=== PATIENT | male | born 1940 | race Caucasian/White ===

== ENCOUNTER 2017-06-08 14:23 | Inpatient (IN) | payer MEDICARE, MEDICAID ==
[~2017-06-08] VITALS: Ht 167.6 cm; Wt 72.9 kg
[2017-06-08 14:40] LABS: BASOPHILS % 0.6 % (0.0-2.0); EOSINOPHILS # 0.1 10^3/ul (0.0-0.5); EOSINOPHILS % 1.1 % (0.0-7.0); HEMOGLOBIN 11.9 g/dl (14.0-18.0); LYMPHOCYTES # 1.6 10^3/ul (0.8-2.9); LYMPHOCYTES % 25.7 % (15.0-51.0); MEAN CORPUSCULAR HEMOGLOBIN 31.4 pg (29.0-33.0); MEAN CORPUSCULAR HGB CONC 33.1 g/dl (32.0-37.0); MEAN PLATELET VOLUME 9.6 fl (7.4-10.4); MONOCYTE # 0.7 10^3/ul (0.3-0.9); MONOCYTES % 10.7 % (0.0-11.0); NEUTROPHIL # 3.8 10^3/ul (1.6-7.5); NEUTROPHILS % 61.7 % (39.0-77.0); PLATELET COUNT 222 10^3/UL (140-415); RED BLOOD COUNT 3.79 10^6/ul (4.70-6.10); RED CELL DISTRIBUTION WIDTH 11.9 % (11.5-14.5); WHITE BLOOD COUNT 6.2 10^3/ul (4.8-10.8)
[2017-06-08 15:04] LABS: ANION GAP 13 (8-16); BLOOD UREA NITROGEN 19 mg/dl (7-20); CALCIUM 9.1 mg/dl (8.4-10.2); CARBON DIOXIDE 23 mmol/L (21-31); CHLORIDE 106 mmol/L (97-110); CREATININE 1.11 mg/dl (0.61-1.24); GLUCOSE 107 mg/dl (70-220); POTASSIUM 3.9 mmol/L (3.5-5.1); SODIUM 138 mmol/L (135-144)
[2017-06-08 15:16] LABS: INR 1.23; PROTIME 15.6 Sec (12.2-14.2); PT RATIO 1.2
[2017-06-08 15:17] LABS: PARTIAL THROMBOPLASTIN TIME 29.4 Sec (25.0-35.0)
[2017-06-08] MEDS ORDERED: TAMS0.4C2 PO (15:28)
[2017-06-08 15:29] LABS: TROPONIN-I < 0.012 ng/ml (0.00-0.12)
[2017-06-08] MEDS ORDERED: LOSA25TA5 PO (15:29)
[2017-06-08] MEDS ORDERED: FURO20TA3 PO (15:29)
[2017-06-08] MEDS ORDERED: APIX5TAB PO (15:29)
--- NOTE | 2017-06-08 15:36 | RADRPT ---
PROCEDURE: CT Brain without contrast. CLINICAL INDICATION: Stroke TECHNIQUE: A CT of the brain was performed on a GE Cytoopeed 64-slice CT scanner utilizing axial imaging from the skull base through the vertex without IV contrast. Multiplanar reformatted images were made. Images were reviewed on a PACS workstation. The CTDIvol is 43.68 mGy and the DLP is 720 .23 mGycm. One of the following 3 does reduction techniques were used during this CT examination: 1) Automated exposure control 2) Adjustment of the mA +/- kV according to patient size or 3) Use of iterative reconstruction technique COMPARISON: None available FINDINGS: There is no intracranial hemorrhage, mass effect, or midline shift. No extra-axial fluid collection is seen. The ventricles and sulci are age appropriate. Mild diffuse volume loss is present. Wedge-s haped area of decreased attenuation is noted subjacent to the craniotomy site compatible with resect ion cavity and residual gliosis. Mild decreased attenuation is also present in the bilateral centrum semiovale and periventricular white matter compatible with mild chronic microvascular ischemic dise ase. A 5 mm of the dural based calcification is noted along the right tentorium cerebelli which may represent a calcified meningioma or sequela of prior cysticercosis. Consider MRI as clinically indic ated. Mild vascular calcifications are present of the bilateral intracranial internal carotid arteri es. The visualized scalp and calvarium are remarkable for some of prior right frontal craniotomy. The bi lateral orbits are normal. The bilateral paranasal sinuses, mastoid air cells and middle ear cavitie s are clear. IMPRESSION: 1. No evidence of acute intracranial hemorrhage, infarcts, or acute intracranial pathology. 2. Status post right frontal craniotomy with subjacent resection cavity and gliosis within the righ t frontal lobe. 3. Mild chronic microvascular ischemic disease and diffuse volume loss. 4. Mild atherosclerotic vascular disease RPTAT: HDC .Angie Shields MD, Date Time Electronically viewed and signed by .Angie Shields MD, MD on 06/08/2017 15:35 .C/
--- NOTE | 2017-06-08 16:23 | RADRPT ---
PROCEDURE: XR Chest 1 View. CLINICAL INDICATION: Shortness of breath. Stroke. TECHNIQUE: AP view of the chest was obtained. COMPARISON: None. FINDINGS: The heart size is within normal limits. Calcified atherosclerosis is noted in the aorta. No consol idations are identified. No pneumothorax is seen. Osseous structures are intact. IMPRESSION: Calcified atherosclerosis in the aorta. Clear lungs. RPTAT: AA .Carrington Lee MD, Date Time Electronically viewed and signed by .Carrington Lee MD, MD on 06/08/2017 16:23 .P/
[2017-06-08] MEDS ORDERED: ASPIRIN 325 MG TAB PO ONE (17:00)
[2017-06-08] MEDS ORDERED: ACETAMINOPHEN 325 MG TAB PO PRN (17:00)
[2017-06-08] MEDS ORDERED: ONDANSETRON 4 MG INJ IV PRN (17:00)
--- NOTE | 2017-06-08 17:12 | ERA ---
ER Documentation Chief Complaint Date/Time DATE: 06/08/17 TIME: 17:07 Chief Complaint WEAKNESS UNCLEAR LAST NORMAL TIME HPI Patient is a 77-year-old male with a previous brain tumor, hypertension, and stroke who presents with weakness. The patient was brought in by ambulance. Per the family he had new onset tremors and slurred speech as well as left- sided upper extremity weakness that started today. The onset was unclear. The patient has a family who has a concern for stroke. He said that he "feels weak " to the whole body. He does not know the name of his primary doctor. He did have a previous brain tumor removal. ROS All systems reviewed and are negative except as per history of present illness. Medications Home Meds Reported Medications Losartan Potassium* (Losartan Potassium*) 25 Mg Tablet, 25 MG PO DAILY, TAB 06/08/17 Furosemide* (Furosemide*) 20 Mg Tablet, 20 MG PO DAILY, #60 TAB 06/08/17 Apixaban* (Eliquis*) 5 Mg Tablet, 5 MG PO BID, TAB 06/08/17 Tamsulosin Hcl* (Tamsulosin Hcl*) 0.4 Mg Cap.er.24h, 0.4 MG PO DAILY, CAP 06/08/17 Allergies Allergies: Coded Allergies: No Known Allergy (Unverified , 06/08/17) PMhx/Soc Hx Miscellaneous Medical Probl: Yes (HX OF BRAIN TUMOR, HTN) Hx Alcohol Use: No Hx Substance Use: No Hx Tobacco Use: No Smoking Status: Never smoker FmHx Family History: No diabetes Physical Exam Vitals Vital Signs Date Time Temp Pulse Resp B/P Pulse Ox O2 Delivery O2 Flow Rate FiO2 06/08/17 16:35 69 125/69 06/08/17 14:33 Nasal Cannula 06/08/17 14:33 98.0 77 18 117/56 99 Physical Exam Const: Mild distress Head: Atraumatic Eyes: Normal Conjunctiva ENT: Normal External Ears, Nose and Mouth. Neck: Full range of motion..~ No meningismus. Resp: Clear to auscultation bilaterally Cardio: Regular rate and rhythm, no murmurs Abd: Soft, non tender, non distended. 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 in the left upper extremity Psych: Normal Mood and Affect Result Diagram: 06/08/17 1430 06/08/17 1430 Results 24 hrs Laboratory Tests Test 06/08/17 14:30 White Blood Count 6.210^3/ul Red Blood Count 3.7910^6/ul Hemoglobin 11.9g/dl Hematocrit 36.0% Mean Corpuscular Volume 95.0fl Mean Corpuscular Hemoglobin 31.4pg Mean Corpuscular Hemoglobin Concent 33.1g/dl Red Cell Distribution Width 11.9% Platelet Count 99075^3/UL Mean Platelet Volume 9.6fl Neutrophils % 61.7% Lymphocytes % 25.7% Monocytes % 10.7% Eosinophils % 1.1% Basophils % 0.6% Nucleated Red Blood Cells % 0.0/100WBC Neutrophils # 3.810^3/ul Lymphocytes # 1.610^3/ul Monocytes # 0.710^3/ul Eosinophils # 0.110^3/ul Basophils # 0.010^3/ul Nucleated Red Blood Cells # 0.010^3/ul Prothrombin Time 15.6Sec Prothrombin Time Ratio 1.2 INR International Normalized Ratio 1.23 Activated Partial Thromboplast Time 29.4Sec Sodium Level 138mmol/L Potassium Level 3.9mmol/L Chloride Level 106mmol/L Carbon Dioxide Level 23mmol/L Anion Gap 13 Blood Urea Nitrogen 19mg/dl Creatinine 1.11mg/dl Glucose Level 107mg/dl Hemoglobin A1c 5.4% Calcium Level 9.1mg/dl Troponin I < 0.012ng/ml Current Medications Medications (Trade) Dose Ordered Sig/Natalia Route PRN Reason Start Time Stop Time Status Last Admin Dose Admin Aspirin (Aspirin) 325 mg ONCE ONCE PO 06/08/17 17:00 06/08/17 17:01 DC 06/08/17 17:02 Ondansetron HCl (Zofran Inj) 4 mg ER BRIDGE PRN IV NAUSEA AND/OR VOMITING 06/08/17 17:00 06/09/17 16:59 Acetaminophen (Tylenol Tab) 650 mg ER BRIDGE PRN PO MILD PAIN/FEVER 06/08/17 17:00 06/09/17 16:59 Procedures/MDM PROCEDURE: CT Brain without contrast. CLINICAL INDICATION: Stroke TECHNIQUE: A CT of the brain was performed on a SpareTimepePolyServe 64-slice CT scanner utilizing axial imaging from the skull base through the vertex without IV contrast. Multiplanar reformatted images were made. Images were reviewed on a PACS workstation. The CTDIvol is 43.68 mGy and the DLP is 720.23 mGycm. One of the following 3 does reduction techniques were used during this CT examination: 1) Automated exposure control 2) Adjustment of the mA +/- kV according to patient size or 3) Use of iterative reconstruction technique COMPARISON: None available FINDINGS: There is no intracranial hemorrhage, mass effect, or midline shift. No extra- axial fluid collection is seen. The ventricles and sulci are age appropriate. Mild diffuse volume loss is present. Wedge-shaped area of decreased attenuation is noted subjacent to the craniotomy site compatible with resection cavity and residual gliosis. Mild decreased attenuation is also present in the bilateral centrum semiovale and periventricular white matter compatible with mild chronic microvascular ischemic disease. A 5 mm of the dural based calcification is noted along the right tentorium cerebelli which may represent a calcified meningioma or sequela of prior cysticercosis. Consider MRI as clinically indicated. Mild vascular calcifications are present of the bilateral intracranial internal carotid arteries. The visualized scalp and calvarium are remarkable for some of prior right frontal craniotomy. The bilateral orbits are normal. The bilateral paranasal sinuses, mastoid air cells and middle ear cavities are clear. IMPRESSION: 1. No evidence of acute intracranial hemorrhage, infarcts, or acute intracranial pathology. 2. Status post right frontal craniotomy with subjacent resection cavity and gliosis within the right frontal lobe. 3. Mild chronic microvascular ischemic disease and diffuse volume loss. 4. Mild atherosclerotic vascular disease RPTAT: HDC .Angie Shields MD, Date Time Electronically viewed and signed by .Angie Shields MD, on 06/08/2017 15: 35 Chest x-ray negative per radiology. EKG read by me: Rate/Rhythm: Right bundle branch block at a normal rate Intervals: Normal Impression: Right bundle branch block Patient is a 77-year-old male with previous brain tumor resection, hypertension , and stroke who presents with stroke. The family says that he has new onset stroke symptoms that started today but the onset was unclear and he also had surgery in his brain before which would make the risks of giving TPA much too high. I believe the risks of TPA would outweigh the benefits and therefore he was not considered a TPA candidate. The patient was given aspirin after he passed a bedside swallow evaluation. The patient will be admitted to the care of the panel team to a telemetry bed for further evaluation. He will likely need MRI further workup for possible stroke. Departure Diagnosis: Primary Impression: Stroke Qualified Code: I63.9 - Cerebrovascular accident (CVA), unspecified mechanism Additional Impression: Acute weakness Condition: MIMI Brown MD Jun 08, 2017 17:12
[2017-06-08 17:59] VITALS: PULSE 66
[2017-06-08 18:16] VITALS: BP 154/70; RESP 18
[2017-06-08 18:23] VITALS: Ht 167.6 cm; Wt 72.9 kg
[2017-06-08 19:29] VITALS: BP 138/72; RESP 18
[2017-06-08] MEDS ORDERED: NACL 0.9% 3 ML SYG IV SCH (19:30)
--- NOTE | 2017-06-08 19:53 | HP ---
Date/Time of Note Date/Time of Note DATE: 06/08/17 TIME: 19:33 Assessment/Plan VTE Prophylaxis VTE Prophylaxis Intervention: other Lines/Catheters [facility] Saline Lock Urinary Cath still in place: No Assessment/Plan Chief Complaint/Hosp Course 77 yo male with h/o renal cancer with "brain tumor" resected at same time as diagnosis (unclear pathology), DVT on AC who presents with episode of facial numbness then arm shaking which self resolved, concerning for seizure - CT head negative - MRI pending to assess for tumor which is quite concerning given his history - Dr Dee has been consulted DVT: - Continue Apixaban RCC: - Receives every 2 weeks infusions at [facility], scheduled for this Saturday BPH: - Contiue flomax Discharge to self care following workup Problems: HPI/ROS Admit Date/Time Admit Date/Time Jun 08, 2017 at 16:53 Hx of Present Illness 77 yo male presenting for evaluation of episode of facial numbness and arm shaking Patient has a history of DVT on Eliquis, renal cancer for which he received biweekly infusions at [facility], "brain tumor" resection in November of this year. Had been on keppra for seizure ppx following brain tumor resection but was discontinued. Sounds like he has never had a known seizure. In [place] until this afternoon when developed left sided facial numbness. This progressed to L arm numbness then shaking of both his arms. Episode resolved after ten minutes. Fully conscious throughout the whole episode. Head CT was negative in ED Currently feels well, asymptomatic PMH/Family/Social Past Medical History DVT on AC Kidney cancer, "brain tumor" resection 11/2016 BPH Past Surgical History Brain tumor resection Social History Alcohol Use: none Smoking Status: Never smoker Drug Use: none Exam/Review of Systems Vital Signs Vitals Vital Signs Date Time Temp Pulse Resp B/P Pulse Ox O2 Delivery O2 Flow Rate FiO2 06/08/17 18:16 98.0 64 18 154/70 98 06/08/17 14:33 Nasal Cannula Exam Exam Well appearing NAD AOx3, conversant, pleasant RRR, no m/r/g Lungs CTAB NEURO: PERRLA. Has some L sided droop which is stable from after his surgery in November he says. CN II-XII otherwise intact Strength is 5/5 throughout Rapid alternating movements are normal on the right but slow on the left Sensation seems in tact throughout FNF was normal b/l Gait normal Labs Result Diagram: 06/08/17 1430 06/08/17 1430 EMMA WILLETT MD Jun 08, 2017 19:43
[2017-06-08 20:06] VITALS: PULSE 69
[2017-06-08] MEDS: APIXABAN 5 MG TABLET PO SCH (20:55)
[2017-06-08 22:47] LABS: ADD UMIC NO; UR ASCORBIC ACID NEGATIVE (NEGATIVE); UR BILIRUBIN (Dip) NEGATIVE (NEGATIVE); UR BLOOD (Dip) NEGATIVE (NEGATIVE); UR CLARITY CLEAR (CLEAR); UR COLOR YELLOW (YELLOW); UR GLUCOSE (Dip) NEGATIVE (NEGATIVE); UR KETONES (Dip) NEGATIVE (NEGATIVE); UR LEUKOCYTE ESTERASE (Dip) NEGATIVE Leu/ul (NEGATIVE); UR NITRITE (Dip) NEGATIVE (NEGATIVE); UR SPECIFIC GRAVITY (Dip) 1.011 (1.003-1.030); UR TOTAL PROTEIN (Dip) NEGATIVE (NEGATIVE); UR UROBILINOGEN (Dip) NEGATIVE (NEGATIVE)
[2017-06-08 23:02] LABS: BARBITURATES Negative (NEGATIVE); BENZODIAZEPINES Negative (NEGATIVE); CANNABINOIDS Negative (NEGATIVE); COCAINE Negative (NEGATIVE); OPIATES Negative (NEGATIVE)
[2017-06-09] VITALS (12 sets, daily range): BP systolic 91–146; BP diastolic 51–77; PULSE 55–63; RESP 18–20
[2017-06-09] MEDS: TAMSULOSIN (SR) 0.4 MG CAP PO SCH (08:36)
[2017-06-09] MEDS: APIXABAN 5 MG TABLET PO SCH ×2 (08:36→20:46)
[2017-06-09] MEDS: FUROSEMIDE 20 MG TAB PO SCH (08:36)
[2017-06-09] MEDS ORDERED: LOSARTAN 25 MG TAB PO SCH (09:00)
--- NOTE | 2017-06-09 13:26 | CONS ---
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 He was admitted following an episode of left facial numbness and shaking of his arm. His symptoms lasted about 5 minutes and did not recur. He was awake during this episode. He also had a history of DVT and has been on Eliquis. CT scan of the brain showed no evidence of acute intracranial hemorrhage, infarcts, or acute intracranial pathology, status post right frontal craniotomy with subjacent resection cavity and gliosis within the right frontal lobe, mild chronic microvascular ischemic disease and diffuse volume loss, mild atherosclerotic vascular disease. Examination was nonfocal. Apparently he likely has focal seizures. Plan 1 MRI of the brain with and without contrast 2 EEG 3 start Keppra 500 mg p.o. 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 He was admitted following an episode of left facial numbness and shaking of his arm. His symptoms lasted about 5 minutes and did not recur. He was awake during this episode. He also had a history of DVT and has been on Eliquis. CT scan of the brain showed no evidence of acute intracranial hemorrhage, infarcts, or acute intracranial pathology, status post right frontal craniotomy with subjacent resection cavity and gliosis within the right frontal lobe, mild chronic microvascular ischemic disease and diffuse volume loss, mild atherosclerotic vascular disease. Social History Alcohol Use: none Smoking Status: Never smoker Drug Use: none Exam/Review of Systems Vital Signs Vitals Vital Signs Date Time Temp Pulse Resp B/P Pulse Ox O2 Delivery O2 Flow Rate FiO2 06/09/17 12:08 55 06/09/17 11:59 98.0 18 146/67 98 06/08/17 14:33 Nasal Cannula Intake and Output 06/08/17 06/08/17 06/09/17 15:00 23:00 07:00 Intake Total 120 ml Output Total 650 ml Balance -530 ml Exam Constitutional: alert, oriented, well developed Psych: nl mood/affect, no complaints Head: atraumatic, normocephalic Eyes: EOMI, nl conjunctiva, nl lids, nl sclera ENMT: mucosa pink and moist, nl external ears & nose, nl lips & teeth, nl nasal mucosa & septum Neck: non-tender, supple Respiratory: clear to auscultation, normal air movement Cardiovascular: nl pulses, regular rate and rhythm Gastrointestinal: nl liver, spleen, non-tender, soft Musculoskeletal: nl extremities to inspection Extremities: normal pulses Neurological: 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8 Lymphocytes # 1.6 Monocytes # 0.7 Eosinophils # 0.1 Basophils # 0.0 Nucleated Red Blood Cells # 0.0 Prothrombin Time 15.6 H Prothrombin Time Ratio 1.2 INR International Normalized Ratio 1.23 Activated Partial Thromboplast Time 29.4 Sodium Level 138 Potassium Level 3.9 Chloride Level 106 Carbon Dioxide Level 23 Anion Gap 13 Blood Urea Nitrogen 19 Creatinine 1.11 Glucose Level 107 Hemoglobin A1c 5.4 Calcium Level 9.1 Troponin I < 0.012 Urine Color YELLOW Urine Clarity CLEAR Urine pH 6.0 Urine Specific [place] 1.011 Urine Ketones NEGATIVE Urine Nitrite NEGATIVE Urine Bilirubin NEGATIVE Urine Urobilinogen NEGATIVE Urine Leukocyte Esterase NEGATIVE Urine Hemoglobin NEGATIVE Urine Glucose NEGATIVE Urine Total Protein NEGATIVE Urine Opiates Screen Negative Urine Barbiturates Negative Urine Amphetamines Screen Negative Urine Benzodiazepines Screen Negative Urine Cocaine Screen Negative Urine Cannabinoids Negative Medications Medications Current Medications Apixaban (Eliquis) 5 mg BID PO Last administered on 06/09/17 08:36; Admin Dose 5 MG; Start 06/08/17 at 21:00 Furosemide (Lasix) 20 mg DAILY PO Last administered on 06/09/17 08:36; Admin Dose 20 MG; Start 06/09/17 at 09:00 Tamsulosin HCl (Flomax) 0.4 mg DAILY PO Last administered on 06/09/17 08:36; Admin Dose 0.4 MG; Start 06/09/17 at 09:[address] scan of the brain 06/08/2017 IMPRESSION: 1. No evidence of acute intracranial hemorrhage, infarcts, or acute intracranial pathology. 2. Status post right frontal craniotomy with subjacent resection cavity and gliosis within the right frontal lobe. 3. Mild chronic microvascular ischemic disease and diffuse volume loss. 4. Mild atherosclerotic vascular disease RPTAT: HDC .Angie Shields MD, MD Date Time Electronically viewed and signed by .Angie Shields MD, MD on 06/08/2017 15: 35 KAYLEE BALLARD MD Jun 09, 2017 13:26
[2017-06-09] MEDS: LEVETIRACETAM 500 MG TAB PO SCH ×2 (14:45→20:46)
--- NOTE | 2017-06-09 15:20 | PN ---
Date/Time of Note Date/Time of Note DATE: 06/09/17 TIME: 15:18 Assessment/Plan VTE Prophylaxis VTE Prophylaxis Intervention: other Lines/Catheters IV [facility] Type (from [facility] Saline Lock Urinary Cath still in place: No Assessment/Plan Chief Complaint/Hosp Course 77 yo male with h/o renal cancer with "brain tumor" resected at same time as diagnosis (unclear pathology), DVT on AC who presents with episode of facial numbness then arm shaking which self resolved, concerning for seizure - CT head negative - MRI pending to assess for tumor which is quite concerning given his history - EEG - Dr Dee has been consulted - Keppra 500 BID H/o DVT: - Continue Apixaban RCC: - Receives every 2 weeks infusions at [facility], scheduled for this Saturday BPH: - Contiue flomax Discharge to self care following workup Problems: Subjective 24 Hr Interval Summary Free Text/Dictation No change to status Feels normal since yesterday, no seizures etc Awaiting MRI and EEG Seen by Dr Dee, recommends Keppra 500 BID Exam/Review of Systems Vital Signs Vitals Vital Signs Date Time Temp Pulse Resp B/P Pulse Ox O2 Delivery O2 Flow Rate FiO2 06/09/17 12:08 55 06/09/17 11:59 98.0 18 146/67 98 06/08/17 14:33 Nasal Cannula Intake and Output 06/08/17 06/08/17 06/09/17 15:00 23:00 07:00 Intake Total 120 ml Output Total 650 ml Balance -530 ml Exam STable L facial droop chronic Constitutional: alert, oriented, well developed Psych: nl mood/affect, no complaints Head: atraumatic, normocephalic Eyes: EOMI, PERRL, nl conjunctiva, nl lids, nl sclera ENMT: nl external ears & nose, nl lips & teeth, nl nasal mucosa & septum Neck: non-tender, supple Respiratory: clear to auscultation, normal air movement Cardiovascular: nl pulses, regular rate and rhythm Gastrointestinal: nl liver, spleen, non-tender, soft Musculoskeletal: nl extremities to inspection, nl gait and stance Extremities: normal pulses Neurological: NEW ORDER CLERK II-XII intact, nl mental status, nl speech, nl strength Skin: nl turgor, No rash or lesions Lymph: nl lymph nodes Results Result Diagram: 06/08/17 1430 06/08/17 1430 Results 24 hrs Laboratory Tests Test 06/08/17 22:30 Urine Color YELLOW Urine Clarity CLEAR Urine pH 6.0 Urine Specific [place] 1.011 Urine Ketones NEGATIVE Urine Nitrite NEGATIVE Urine Bilirubin NEGATIVE Urine Urobilinogen NEGATIVE Urine Leukocyte Esterase NEGATIVE Urine Hemoglobin NEGATIVE Urine Glucose NEGATIVE Urine Total Protein NEGATIVE Urine Opiates Screen Negative Urine Barbiturates Negative Urine Amphetamines Screen Negative Urine Benzodiazepines Screen Negative Urine Cocaine Screen Negative Urine Cannabinoids Negative Medications Medications Current Medications Apixaban (Eliquis) 5 mg BID PO Last administered on 06/09/17 08:36; Admin Dose 5 MG; Start 06/08/17 at 21:00 Furosemide (Lasix) 20 mg DAILY PO Last administered on 06/09/17 08:36; Admin Dose 20 MG; Start 06/09/17 at 09:00 Tamsulosin HCl (Flomax) 0.4 mg DAILY PO Last administered on 06/09/17 08:36; Admin Dose 0.4 MG; Start 06/09/17 at 09:00 Levetiracetam (Keppra) 500 mg BID PO Last administered on 06/09/17 14:45; Admin Dose 500 MG; Start 06/09/17 at 14:00 EMMA WILLETT MD Jun 09, 2017 15:20
[2017-06-10 00:13] VITALS: BP 115/74; RESP 20
[2017-06-10 00:31] VITALS: PULSE 72
[2017-06-10 04:05] VITALS: PULSE 67
[2017-06-10 04:11] VITALS: BP 112/57; RESP 20
[2017-06-10 08:00] VITALS: PULSE 112
[2017-06-10 08:08] VITALS: BP 127/76; RESP 18
--- NOTE | 2017-06-10 08:17 | RADRPT ---
PROCEDURE: MR Brain with and without contrast. CLINICAL INDICATION: CVA. TECHNIQUE: An MRI of the brain was performed on a 1.5 darren scanner utilizing the following sequen rob: Sagittal and axial T1 weighted, axial T2 weighted, coronal GRE, axial diffusion weighted with A DC mapping, and post contrast axial and coronal T1 weighted and axial FLAIR. 10 ml of Magnevist was given intravenously without complication. COMPARISON: CT brain 06/08/2017 FINDINGS: Right frontal craniotomy with underlying 3 cm resection cavity with marginal signal loss gradient ec ho sequences compatible with susceptibility and hemosiderin deposition/blood degradation products li baldev postsurgical in nature. There is marginal diffusion signal hyperintensity likely artifactual an d secondary to postsurgical changes. No other areas of restricted diffusion to suggest acute or nallely y subacute ischemic infarction. T2 / FLAIR signal hyperintensity surrounding the resection cavity is most compatible with gliosis. No evidence of pathologic enhancement of the brain parenchyma, leptom eninges or dura. Minimal dural thickening is noted underlying the craniotomy Scattered nonspecific FLAIR/T2 signal hyperintensity foci in the subcortical and periventricular whi te matter compatible with sequelae of mild to moderate chronic microvascular ischemic disease. There is otherwise preservation of lewis white differentiation with prominence of the ventricles and subarachnoid spaces compatible with mild to moderate cerebral volume loss. The posterior fossa contents, brainstem, craniocervical junction, seventh - eighth cranial nerve com plexes, orbits, paranasal sinuses, and pituitary axis are unremarkable. No calvarial lesion identifi ed. Normal flow voids are visible in the proximal intracranial arteries and dural sinuses, indicating pa tency. IMPRESSION: 1. No evidence of acute or early subacute ischemic infarction or pathologic enhancement. 2. Right frontal craniotomy with underlying resection cavity and postsurgical changes with surround ing gliosis as detailed above. 3. No evidence of mass. 4. Mild to moderate chronic microvascular ischemic changes and cerebral volume loss. RPTAT: HH Physician Lulu Date Time Electronically viewed and signed by Physician Lulu on 06/10/2017 08:16 KARLO/
[2017-06-10] MEDS: LEVETIRACETAM 500 MG TAB PO SCH (08:49)
[2017-06-10] MEDS: FUROSEMIDE 20 MG TAB PO SCH (08:50)
[2017-06-10] MEDS: TAMSULOSIN (SR) 0.4 MG CAP PO SCH (08:50)
[2017-06-10] MEDS: APIXABAN 5 MG TABLET PO SCH (09:15)
--- NOTE | 2017-06-10 10:55 | PDOCDIS ---
Discharge Instructions CONDITION Patient Condition: Good HOME CARE INSTRUCTIONS: Diet Instructions: Regular ACTIVITY: Activity Restrictions: No Restrictions FOLLOW UP/APPOINTMENTS Follow-up Plan F/U WITH YOUR PCP IN 1-2 WEEKS ISABEL DENNIS Jun 10, 2017 10:55
--- NOTE | 2017-06-10 12:49 | PRO ---
DATE OF PROCEDURE: 06/09/2017 INDICATION: This is a 77-year-old male, who came for evaluation of an episode of facial numbness and then arm shaking. EEG is to rule out seizure activity. CURRENT MEDICATIONS: Eliquis. TECHNIQUE: Utilizing a 16 channel EEG machine, cap scalp electrodes were applied in accordance with the International 10- 20 system. Gfftz-xr-luwag and rvvya-ir-rww montages were displayed. Electrical impedances were measured and reported. DESCRIPTION OF PROCEDURE: During a resting state posterior dominant rhythm of about 8-9 Hertz were seen bihemispherically. Photic stimulation had a good response. Hyperventilation was not performed. There was no focal lateralizing or epileptiform discharge identified. INTERPRETATION: This is a normal EEG. A normal EEG does not exclude seizure disorder please correlate clinically. Dictated By: Divya Dee MD /[email or web address]/[email or web address] /Document#: [id number]
--- NOTE | 2017-06-10 16:06 | DS ---
Date/Time of Note Date/Time of Note DATE: 06/10/17 TIME: 15:58 Discharge Summary Admission/Discharge Info Admit Date/Time Jun 08, 2017 at 16:53 Discharge Date/Time Jun 10, 2017 at 11:30 Discharge Diagnosis 1. Facial paresthesias with tremors likely secondary to chemotherapy-resolved MRI and EEG are negative 2. H/o DVT: - Continue Apixaban 3. RCC: - Receives every 2 weeks infusions at [facility], scheduled for today 4. BPH: - Contiue flomax 5. Hypertension-stable Continue home meds Patient Condition: Good Hospital Course Patient is a 77 yo male with a history of DVT on Eliquis, renal cell cancer on chemotherapy, history of brain mass status post resection November of this year, patient had been on Keppra for seizure prophylaxis but was discontinued. Patient presents with an episode of facial numbness and arm shaking, this progressed to L arm numbness then shaking of both his arms, episode resolved after ten minutes and patient was fully conscious throughout the whole episode. Episode likely from chemotherapy and history of brain mass with resection, patient was seen by neurology. Head CT and MRI were negative as was the EEG, the patient had no further episodes, on the day of discharge patient's vitals, labs and physical exam were stable. Patient had no further acute complaints and questions were answered. Home Meds Reported Medications Losartan Potassium* (Losartan Potassium*) 25 Mg Tablet, 25 MG PO DAILY, TAB 06/08/17 Furosemide* (Furosemide*) 20 Mg Tablet, 20 MG PO DAILY, #60 TAB 06/08/17 Apixaban* (Eliquis*) 5 Mg Tablet, 5 MG PO BID, TAB 06/08/17 Tamsulosin Hcl* (Tamsulosin Hcl*) 0.4 Mg Cap.er.24h, 0.4 MG PO DAILY, CAP 06/08/17 Follow-up Plan F/U WITH YOUR PCP IN 1-2 WEEKS Primary Care Provider Not On Staff Doctor Time spent on discharge: > 30 minutes ISABEL DENNIS Jun 10, 2017 16:06
== END 2017-06-10 11:30 | disposition home or self-care (01) | DRG 92 ==
LOC: E/R 14:23 → TEL 16:53
PROVIDERS: ADMIT Internal Medicine; ATTEND Internal Medicine
DX: G25.1 Drug-induced tremor (principal); C79.31 Secondary malignant neoplasm of brain; C64.9 Malignant neoplasm of unspecified kidney, except renal pelvis; R20.2 Paresthesia of skin; N40.0 Benign prostatic hyperplasia without lower urinary tract symptoms; I10 Essential (primary) hypertension; T45.1X5A Adverse effect of antineoplastic and immunosuppressive drugs, initial encounter; Y92.019 Unspecified place in single-family (private) house as the place of occurrence of the external cause; Z79.02 Long term (current) use of antithrombotics/antiplatelets; Z86.718 Personal history of other venous thrombosis and embolism
CPT/HCPCS: 36415; 70450; 70553; 71010; 80048; 80307; 81003; 83036; 84484; 85025; 85610; 85730; 92610; 93005; 95819; 97161; 97165